=== PATIENT | female | born 1975 | race Caucasian/White ===

== ENCOUNTER 2024-02-18 00:19 | Day surgery (SDC) | payer OTHER, SELFPAY ==
--- NOTE | 2024-02-13 09:27 | PM.IMHP ---
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 She has had an InterStim device for several years. Her battery is now into surface. 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 She declines full revision
[2024-02-14 15:22] VITALS: BMI 31.6
--- NOTE | 2024-02-14 15:22 | PC.NURSE ---
Report to the Outpatient Waiting Room, entrance under the green pavilion located off [facility], at time _0600_ on date _[id number]_. Planned Procedure Time: _0800_. Time changes happen often and if your time is changed the preop area will call you the afternoon before. - You and your visitor will be asked to self-screen and do not enter if you have any COVID symptoms. - A mask is optional within the hospital at this time. Patients may have clear liquids (water, carbonated beverages, clear teas, apple juice) until 3 hours prior to surgery with a maximum of 20 ounces. - No food from midnight until time of surgery Take the following medications with a SIP of water the morning of surgery: ___Lexapro and BC pill DO NOT STOP ANY OF YOUR OTHER PRESCRIPTION MEDICATIONS PRIOR TO SURGERY ?EXCEPT THE FOLLOWING Medications to discontinue per physician None Date to take last dose Please no make-up, nail kenyan, hairspray, perfume, deodorant, or body powder the day of surgery. No jewelry (including any body piercings) or valuables the day of surgery, leave them at home. Please take a shower or bath the night before, or the morning of, surgery with an antibacterial soap. Wear comfortable, loose fitting clothing. - Jewelry must be removed prior to entering the operating room. Rings and piercings that are not removed may be cut off. - The hospital will not accept responsibility for valuables. - Please leave all valuables, including medications, at home the day of surgery. If you are going home after surgery, a licensed certified driver examiner must drive you home. - NO public transportation without another adult if you receive anesthesia. - We recommend that an adult stay with you for 24 hours following discharge. - We also recommend that you do not drive, make important decision, drink alcoholic beverages, or take any drugs that were not prescribed by your health care provider for at least 24 hours after your discharge time. Follow any additional instructions given to you from your surgeon. If you or anyone in your household have experienced Covid symptoms in the past week, please notify your surgeon or the nurse liaison at the phone number below for possible testing. Telephone instructions given to __Radha___and asked if any additional questions and then verbalized understanding. Patient advised to call surgeon office or pre surgery nurse liaison [phone] if any additional questions.
--- NOTE | ~2024-02-18 | XR_ITS ---
XR fluoroscopy no charge Indication: Neurostimulator implant battery replacement TECHNIQUE: Fluoroscopy used during Neurostimulator implant battery replacement performed by [Gio Myers MD] on 02/18/2024. 19 seconds of fluoroscopy with one fluoroscopic images captured. FINDINGS: Correlate with procedure note. IMPRESSION: Fluoroscopy used during Neurostimulator implant battery replacement. Reviewed, dictated and finalized at location B.
--- NOTE | 2024-02-18 06:22 | WPDHPUPDATE1 ---
History and Physical Update Update Date/Time: 02/18/24 06:22 History and Physical has been reviewed, including an updated exam of the patient. There are NO changes in the patient's condition. Risks, benefits, and alternatives have been discussed and questions answered. Patient agrees to proceed with procedure.
[2024-02-18 06:45] VITALS: BP 158/92; PULSE 74; RESP 14; TEMP 36.3; O2SAT 98
[2024-02-18 06:59] LABS: BEDSIDEPREGUCG Negative
[2024-02-18 08:10] VITALS: BP 180/96; PULSE 79; RESP 12; O2SAT 98
[2024-02-18] MEDS: BUPIVACAINE/EPINEPHRINE 0.5% 50 ML VIAL 20 ML INFILTRATE (08:11)
[2024-02-18] MEDS: ceFAZolin SODIUM 1 GM VIAL (08:11)
[2024-02-18 08:20] VITALS: BP 189/86; PULSE 78; RESP 12; O2SAT 97
[2024-02-18 08:30] VITALS: BP 153/85; PULSE 80; RESP 14; O2SAT 98
[2024-02-18 08:41] VITALS: BP 153/90; PULSE 78; RESP 16; O2SAT 100
[2024-02-18 08:43] VITALS: BP 156/83; PULSE 80; RESP 12; O2SAT 98
--- NOTE | 2024-02-18 09:49 | W.PM.PROC2 ---
Procedure Note - Detailed Date of Procedure 02/18/24 Pre-op Diagnosis urge incontinence, fecal incont Post-op Diagnosis Same Procedure Performed Change of neurostimulator battery, complex neurostimulator programming and impedance check Surgeon Jone Myers MD Anesthesia Local Indications this is a with a neurostimulator device in place. She is here for her 2nd battery exchange. We discussed full revision so she could be MRI compatible. She does not feel that is necessary. We will simply changed her battery. She understands risks of bleeding, infection, need for repeat procedures. She agrees to proceed Findings uncomplicated better exchange Description of Procedure she was correctly identified. Informed consent obtained. From the operating room. She was given local anesthesia. She was prepped and draped sterile fashion. Time-out performed. After applying local anesthesia incised the skin. I located the pulse generator. I explanted the pulse generator. New connections were made between the new pulse generator and the lead. The generator was programmed. the generator was placed in the pocket. Impedance check was found to be normal. I irrigated out all wounds. I assured hemostasis. I closed subcutaneous tissues with 2-0 Vicryl. Skin with 4-0 Vicryl. Glue was applied. She was awakened transferred to PACU in stable condition Estimated Blood Loss 1 Drains Yes Packing No Pathology None sent Complications No immediate complications Condition Stable Disposition PACU
== END 2024-02-18 08:54 | disposition home or self-care (01) ==
PROVIDERS: PCP Family Medicine; Visit Provider Urology
PROC: (CPT 64590; principal; 2024-02-18 08:00)
DX: Z45.42 Encounter for adjustment and management of neurostimulator (principal); N39.41 Urge incontinence; F98.1 Encopresis not due to a substance or known physiological condition
CPT/HCPCS: 64590; 99199; C1767; C1787; J0690